=== PATIENT | male | born 1955 | race American Indian/Alaskan Native ===

== ENCOUNTER 2020-06-28 13:21 | Observation (INO) | payer MEDICAID ==
--- NOTE | 2020-06-28 13:40 | Emergency Department Report ---
Blank Doc - Documentation Documentation: 65-year-old F Mauritian male with asthma and presents emergency department comp laining of progressively worsening shortness of breath not responding to to his usual albuterol treatment states he noted a whole box of albuterol with no improvement in the chest pressure is beginning to to develop as well. Physical examination there is some wheezing and and and rhonchi his saturation was around 91 was actually placed him on a nasal cannula as well This initial assessment/diagnostic orders/clinical plan/treatment(s) is/are subject to change based on patients health status, clinical progression and re- assessment by fellow clinical providers in the ED. Further treatment and workup at subsequent clinical providers discretion. Patient/guardian urged not to elope from the ED as their condition may be serious if not clinically assessed and managed. Initial orders include: Chest pain evaluation and treat his asthma
--- NOTE | 2020-06-28 14:10 | XRay Report ---
CHEST 2 VIEWS INDICATION / CLINICAL INFORMATION: Dyspnea. COMPARISON: Chest one view from 08/03/2015. FINDINGS: SUPPORT DEVICES: None. HEART / MEDIASTINUM: No significant abnormality. LUNGS / PLEURA: No significant pulmonary or pleural abnormality. No pneumothorax. ADDITIONAL FINDINGS: No significant additional findings. IMPRESSION: 1. No acute abnormality of the chest. Signer Name: Ankit Garibay MD Signed: 06/28/2020 2:06 PM Workstation Name: [id number]
[2020-06-28 14:24] LABS: Hematocrit 45.8 % (35.5-45.6); Hemoglobin 15.3 gm/dl (11.8-15.2); Mean Corpuscular HGB Conc 33 % (32-34); Mean Corpuscular Volume 91 fl (84-94); Platelet Count 290 K/mm3 (140-440); Red Blood Count 5.06 M/mm3 (3.65-5.03); Red Cell Distribution Width 14.1 % (13.2-15.2)
[2020-06-28 14:45] LABS: Alanine Aminotransferase 23 units/L (7-56); Albumin 4.4 g/dL (3.9-5); BUN/Creatinine Ratio 10; Blood Urea Nitrogen 11 mg/dL (9-20); Calcium 9.2 mg/dL (8.4-10.2); Hemolysis Index 12
[2020-06-28] MEDS ORDERED: IPRATROPIUM/ALBUTEROL SULFATE 3 ML AMPUL.NEB IH ONE (16:00)
[2020-06-28] MEDS ORDERED: predniSONE 50 MG TAB PO STA (16:00)
[2020-06-28 17:49] LABS: Basophils % (Manual) 0 % (0.0-1.8); Total Cells Counted 100
[2020-06-28 17:50] LABS: Platelet Estimate Consistent w Auto; RBC Morphology Normal
[2020-06-28] MEDS ORDERED: ALBUTEROL 2.5 MG/3 ML NEBU IH ONE ×3 (18:53→22:00)
[2020-06-28] MEDS ORDERED: IPRATROPIUM 0.02% NEBU 2.5 ML IH ONE ×3 (18:54→22:00)
[2020-06-28] MEDS ORDERED: methylPREDNISolone Sod Succinate 125 MG/2 ML INJ IV ONE (18:55)
[2020-06-28] MEDS ORDERED: MAGNESIUM SULFATE 2 GM/50 ML BAG IV ONE (18:55)
--- NOTE | 2020-06-28 19:07 | Emergency Department Report ---
ED Shortness of Breath HPI - General Chief Complaint: Dyspnea/Respdistress Stated Complaint: SOB/ASTHMATIC Time Seen by Provider: 06/28/20 18:54 Source: patient Mode of arrival: Ambulatory Limitations: No Limitations - History of Present Illness Initial Comments: Chief complaint: "I am just having trouble breathing." Mr. Aguero is a 65-year-old male with history of hypertension, COPD who presents with severe shortness of breath for the last several days. He has productive cough with yellow sputum. No known sick contacts. He denies any fever. Severe shortness of breath. Home medication proair did not provide any relief. Patient also takes Symbicort. MD Complaint: shortness of breath, cough -: Gradual, days(s) (2) Severity: severe Consistency: constant Improves With: nothing Worsens With: exertion Known History Of: COPD Context: other (No sick contacts) Associated Symptoms: cough, sputum production - Related Data Home Medications Medication Instructions Recorded Confirmed Last Taken Beclomethasone Dipropionat(Nf) 1 inhalation IH BID 08/03/15 08/03/15 Unknown [Qvar 40MCG] Previous Rx's Medication Instructions Recorded Last Taken Type Albuterol Mdi (or & Nicu Only) 2 puff IH QID PRN #1 inha 08/04/15 Unknown Rx [ProAir HFA Inhaler] Butalb/Acetamin/Caff 50-325-40 2 tab PO Q4H PRN #30 tablet 08/04/15 Unknown Rx [Fioricet 50-325-40] HYDROcodone/HOMATROP 5-1.5 10 ml PO BID PRN #100 ml 08/04/15 Unknown Rx [HYDROcodone-Homatropin 5-1.5 mg per 5 ML] guaiFENesin [Robitussin] 200 mg PO QID PRN #1 bottle 08/04/15 Unknown Rx predniSONE [Deltasone] 50 mg PO QDAY #10 tab 08/04/15 Unknown Rx Albuterol *Only Ed* [Proventil 2.5 mg IH Q6H PRN #1 box 08/05/15 Unknown Rx 0.5% NEBS] Amoxicillin [Trimox CAP] 500 mg PO Q8H #21 capsule 08/05/15 Unknown Rx Ciprofloxacin HCl [Ciprofloxacin 500 mg PO BID #14 tablet 08/05/15 Unknown Rx TAB] hydrALAZINE [Apresoline TAB] 25 mg PO Q8HR #90 tab 08/05/15 Unknown Rx Doxycycline Hyclate [Doxycycline 100 mg PO Q12HR 7 Days #14 tab 06/28/20 Unknown Rx Hyclate TAB] Prednisone [predniSONE 10 mg 10 mg PO .TAPER #1 tab.ds.pk 06/28/20 Unknown Rx (6-Day Pack, 21 Tabs)] Allergies Allergy/AdvReac Type Severity Reaction Status Date / Time No Known Allergies Allergy Verified 11/25/14 03:19 ED Review of Systems ROS: Stated complaint: SOB/ASTHMATIC Other details as noted in HPI Comment: All other systems reviewed and negative Constitutional: denies: fever, malaise Respiratory: cough, shortness of breath Cardiovascular: denies: chest pain Gastrointestinal: denies: abdominal pain, nausea, vomiting Neurological: denies: headache ED Past Medical Hx - Past Medical History Previous Medical History?: Yes Hx Hypertension: Yes (unknown) Hx Heart Attack/AMI: No Hx Congestive Heart Failure: No Hx Diabetes: No Hx Deep Vein Thrombosis: No Hx Pulmonary Embolism: No Hx Liver Disease: No Hx Sickle Cell Disease: No Hx Arthritis: No Hx Seizures: No Hx Asthma: No Hx COPD: Yes Hx Tuberculosis: No Hx Dementia: No - Surgical History Hx Coronary Stent: No Hx Pacemaker: No Hx Internal Defibrillator: No - Social History Smoking Status: Former Smoker Substance Use Type: None - Medications Home Medications: Home Medications Medication Instructions Recorded Confirmed Last Taken Type Beclomethasone Dipropionat(Nf) 1 inhalation IH BID 08/03/15 08/03/15 Unknown History [Qvar 40MCG] Albuterol Mdi (or & Nicu Only) 2 puff IH QID PRN #1 inha 08/04/15 Unknown Rx [ProAir HFA Inhaler] Butalb/Acetamin/Caff 50-325-40 2 tab PO Q4H PRN #30 tablet 08/04/15 Unknown Rx [Fioricet 50-325-40] HYDROcodone/HOMATROP 5-1.5 10 ml PO BID PRN #100 ml 08/04/15 Unknown Rx [HYDROcodone-Homatropin 5-1.5 mg per 5 ML] guaiFENesin [Robitussin] 200 mg PO QID PRN #1 bottle 08/04/15 Unknown Rx predniSONE [Deltasone] 50 mg PO QDAY #10 tab 08/04/15 Unknown Rx Albuterol *Only Ed* [Proventil 2.5 mg IH Q6H PRN #1 box 08/05/15 Unknown Rx 0.5% NEBS] Amoxicillin [Trimox CAP] 500 mg PO Q8H #21 capsule 08/05/15 Unknown Rx Ciprofloxacin HCl [Ciprofloxacin 500 mg PO BID #14 tablet 08/05/15 Unknown Rx TAB] hydrALAZINE [Apresoline TAB] 25 mg PO Q8HR #90 tab 08/05/15 Unknown Rx Doxycycline Hyclate [Doxycycline 100 mg PO Q12HR 7 Days #14 tab 06/28/20 Unknown Rx Hyclate TAB] Prednisone [predniSONE 10 mg 10 mg PO .TAPER #1 tab.ds.pk 06/28/20 Unknown Rx (6-Day Pack, 21 Tabs)] ED Physical Exam - General Limitations: No Limitations General appearance: alert, other (Patient speaking full word sentences with obvious work of breathing, tripod position) - Head Head exam: Present: atraumatic, normocephalic - Eye Eye exam: Present: normal appearance - ENT ENT exam: Present: mucous membranes moist - Neck Neck exam: Present: normal inspection, full ROM - Respiratory Respiratory exam: Present: respiratory distress, accessory muscle use, decreased breath sounds, prolonged expiratory. Absent: rales, rhonchi - Cardiovascular Cardiovascular Exam: Present: regular rate, normal rhythm, normal heart sounds - GI/Abdominal GI/Abdominal exam: Present: soft. Absent: distended, tenderness, guarding, rebound - Extremities Exam Extremities exam: Present: normal inspection - Neurological Exam Neurological exam: Present: alert, oriented X3 - Psychiatric Psychiatric exam: Present: normal affect, normal mood - Skin Skin exam: Present: warm, dry, intact, normal color ED Course Vital Signs 06/28/20 06/28/20 06/28/20 13:30 14:44 18:46 Temperature 98.2 F 97.8 F Pulse Rate 84 77 66 Respiratory 24 26 H 24 Rate Blood Pressure 194/77 177/93 Blood Pressure [Right] O2 Sat by Pulse 92 94 89 Oximetry 06/28/20 18:51 Temperature Pulse Rate 74 Respiratory 26 H Rate Blood Pressure Blood Pressure 177/93 [Right] O2 Sat by Pulse 89 Oximetry ED Medical Decision Making - Lab Data Result diagrams: 06/28/20 14:09 11/16/20 14:09 Laboratory Results - last 24 hr 06/28/20 06/28/20 06/28/20 14:09 14:09 14:09 WBC 5.5 RBC 5.06 H Hgb 15.3 H Hct 45.8 H MCV 91 MCH 30 MCHC 33 RDW 14.1 Plt Count 290 Eos % (Auto) Field Placement Director Add Manual Diff Complete Total Counted 100 Seg Neuts % (Manual) 56.0 Band Neutrophils % 0 Lymphocytes % (Manual) 22.0 Reactive Lymphs % (Man) 0 Monocytes % (Manual) 4.0 Eosinophils % (Manual) 18.0 H Basophils % (Manual) 0 Metamyelocytes % 0 Myelocytes % 0 Promyelocytes % 0 Blast Cells % 0 Nucleated RBC % 1.0 H Seg Neutrophils # Man 3.1 Band Neutrophils # 0.0 Lymphocytes # (Manual) 1.2 Abs React Lymphs (Man) 0.0 Monocytes # (Manual) 0.2 Eosinophils # (Manual) 1.0 H Basophils # (Manual) 0.0 Metamyelocytes # 0.0 Myelocytes # 0.0 Promyelocytes # 0.0 Blast Cells # 0.0 WBC Morphology Not Reportable Hypersegmented Neuts Not Reportable Hyposegmented Neuts Not Reportable Hypogranular Neuts Not Reportable Smudge Cells Not Reportable Toxic Granulation Not Reportable Toxic Vacuolation Not Reportable Dohle Bodies Not Reportable Pelger-Huet Anomaly Not Reportable Shannon Rods Not Reportable Platelet Estimate Consistent w auto Clumped Platelets Not Reportable Plt Clumps, EDTA Not Reportable Large Platelets Not Reportable Giant Platelets Not Reportable Platelet Satelliting Not Reportable Plt Morphology Comment Not Reportable RBC Morphology Normal Dimorphic RBCs Not Reportable Polychromasia Not Reportable Hypochromasia Not Reportable Poikilocytosis Not Reportable Anisocytosis Not Reportable Microcytosis Not Reportable Macrocytosis Not Reportable Spherocytes Not Reportable Pappenheimer Bodies Not Reportable Sickle Cells Not Reportable Target Cells Not Reportable Tear Drop Cells Not Reportable Ovalocytes Not Reportable Helmet Cells Not Reportable Smyth-[place] Bodies Not Reportable [place] Rings Not Reportable Igor Cells Not Reportable Bite Cells Not Reportable Crenated Cell Not Reportable Elliptocytes Not Reportable Acanthocytes (Spur) Not Reportable Rouleaux Not Reportable Hemoglobin C Crystals Not Reportable Schistocytes Not Reportable Malaria parasites Not Reportable Jose Bodies Not Reportable Hem Pathologist Commnt No Sodium 138 Potassium 4.1 Chloride 101.8 Carbon Dioxide 28 Anion Gap 12 BUN 11 Creatinine 1.1 Estimated GFR > 60 BUN/Creatinine Ratio 10 Glucose 91 Calcium 9.2 Total Bilirubin 0.30 AST 33 ALT 23 Alkaline Phosphatase 83 Troponin T < 0.010 Total Protein 8.0 Albumin 4.4 Albumin/Globulin Ratio 1.2 06/28/20 16:29 WBC RBC Hgb Hct MCV MCH MCHC RDW Plt Count Eos % (Auto) Add Manual Diff Total Counted Seg Neuts % (Manual) Band Neutrophils % Lymphocytes % (Manual) Reactive Lymphs % (Man) Monocytes % (Manual) Eosinophils % (Manual) Basophils % (Manual) Metamyelocytes % Myelocytes % Promyelocytes % Blast Cells % Nucleated RBC % Seg Neutrophils # Man Band Neutrophils # Lymphocytes # (Manual) Abs React Lymphs (Man) Monocytes # (Manual) Eosinophils # (Manual) Basophils # (Manual) Metamyelocytes # Myelocytes # Promyelocytes # Blast Cells # WBC Morphology Hypersegmented Neuts Hyposegmented Neuts Hypogranular Neuts Smudge Cells Toxic Granulation Toxic Vacuolation Dohle Bodies Pelger-Huet Anomaly Shannon Rods Platelet Estimate Clumped Platelets Plt Clumps, EDTA Large Platelets Giant Platelets Platelet Satelliting Plt Morphology Comment RBC Morphology Dimorphic RBCs Polychromasia Hypochromasia Poikilocytosis Anisocytosis Microcytosis Macrocytosis Spherocytes Pappenheimer Bodies Sickle Cells Target Cells Tear Drop Cells Ovalocytes Helmet Cells Smyth-Ada Bodies [place] Rings [place] Cells Bite Cells Crenated Cell Elliptocytes Acanthocytes (Spur) Rouleaux Hemoglobin C Crystals Schistocytes Malaria parasites Jose Bodies Hem Pathologist Commnt Sodium Potassium Chloride Carbon Dioxide Anion Gap BUN Creatinine Estimated GFR BUN/Creatinine Ratio Glucose Calcium Total Bilirubin AST ALT Alkaline Phosphatase Troponin T < 0.010 Total Protein Albumin Albumin/Globulin Ratio - Radiology Data Radiology results: report reviewed CHEST 2 VIEWS INDICATION / CLINICAL INFORMATION: Dyspnea. COMPARISON: Chest one view from 08/03/2015. FINDINGS: SUPPORT DEVICES: None. HEART / MEDIASTINUM: No significant abnormality. LUNGS / PLEURA: No significant pulmonary or pleural abnormality. No pneumothorax. ADDITIONAL FINDINGS: No significant additional findings. IMPRESSION: 1. No acute abnormality of the chest. - Medical Decision Making Acute COPD exacerbation. Symptoms resolved after continuous nebulizer therapy, p.o. antibiotics, Solu-Medrol and magnesium. Patient was prescribed prednisone taper and doxycycline. Patient is discharged home. Critical care attestation.: If time is entered above; I have spent that time in minutes in the direct care of this critically ill patient, excluding procedure time. ED Disposition Clinical Impression: COPD exacerbation Disposition: DC- TO HOME OR SELFCARE Is pt being admited?: No Does the pt Need Aspirin: No Condition: Stable Instructions: Chronic Bronchitis (ED), Chronic Obstructive Pulmonary Disease, [id number] Prescriptions: Doxycycline Hyclate [Doxycycline Hyclate TAB] 100 mg PO Q12HR 7 Days #14 tab Prednisone [predniSONE 10 mg (6-Day Pack, 21 Tabs)] 10 mg PO .TAPER #1 tab.ds.pk Referrals: PRIMARY CARE, [Primary Care Provider] - 3-5 Days
[2020-06-28] MEDS ORDERED: DOXYCYCLINE 100 MG CAP PO ONE (21:55)
[2020-06-28] MEDS ORDERED: MAGNESIUM HYDROXIDE (MOM) ORAL LIQD UDC PO PRN (23:44)
[2020-06-28] MEDS ORDERED: MORPHINE 2 MG/1 ML INJ IV PRN (23:44)
[2020-06-28] MEDS ORDERED: ACETAMINOPHEN 325 MG TAB PO PRN (23:44)
[2020-06-28] MEDS ORDERED: ONDANSETRON 4 MG/2 ML INJ IV PRN (23:44)
--- NOTE | 2020-06-28 23:53 | History and Physical Report ---
History of Present Illness Date of examination: 06/28/20 Date of admission: 06/28/2020 Chief complaint: Shortness of breath History of present illness: 65-year-old male with known history of hypertension, COPD, presenting to the emergency room today complaining of shortness of breath and cough which has been ongoing for the past few days. Cough has been productive of some slightly scanty yellowish sputum. He denies any chest pain, no fever or chills, no nausea vomiting, no headache or dizziness. Patient states that he traveled out of state about a month ago but denies any sick contacts. Denies any contact with anyone with COVID-19. He has been exposed to seasonal pollens and also exposed to second hand smoke. Patient is a former smoker. He has uses inhalers and nebulizing treatments at home without any significant improvement. Upon arrival in the emergency room he was slightly hypoxic on minimal exertion. Patient is not on home oxygen. Chest x-ray was unremarkable. Patient being admitted for COPD exacerbation. Past History Past Medical History: COPD, hypertension Past Surgical History: No surgical history Social history: smoking (Former smoker) Family history: no significant family history Medications and Allergies Allergies Allergy/AdvReac Type Severity Reaction Status Date / Time No Known Allergies Allergy Verified 11/25/14 03:19 Home Medications Medication Instructions Recorded Confirmed Last Taken Type Beclomethasone Dipropionat(Nf) 1 inhalation IH BID 08/03/15 08/03/15 Unknown History [Qvar 40MCG] Albuterol Mdi (or & Nicu Only) 2 puff IH QID PRN #1 inha 08/04/15 Unknown Rx [ProAir HFA Inhaler] Butalb/Acetamin/Caff 50-325-40 2 tab PO Q4H PRN #30 tablet 08/04/15 Unknown Rx [Fioricet 50-325-40] HYDROcodone/HOMATROP 5-1.5 10 ml PO BID PRN #100 ml 08/04/15 Unknown Rx [HYDROcodone-Homatropin 5-1.5 mg per 5 ML] guaiFENesin [Robitussin] 200 mg PO QID PRN #1 bottle 08/04/15 Unknown Rx predniSONE [Deltasone] 50 mg PO QDAY #10 tab 08/04/15 Unknown Rx Albuterol *Only Ed* [Proventil 2.5 mg IH Q6H PRN #1 box 08/05/15 Unknown Rx 0.5% NEBS] Amoxicillin [Trimox CAP] 500 mg PO Q8H #21 capsule 08/05/15 Unknown Rx Ciprofloxacin HCl [Ciprofloxacin 500 mg PO BID #14 tablet 08/05/15 Unknown Rx TAB] hydrALAZINE [Apresoline TAB] 25 mg PO Q8HR #90 tab 08/05/15 Unknown Rx Doxycycline Hyclate [Doxycycline 100 mg PO Q12HR 7 Days #14 tab 06/28/20 Unknown Rx Hyclate TAB] Prednisone [predniSONE 10 mg 10 mg PO .TAPER #1 tab.ds.pk 06/28/20 Unknown Rx (6-Day Pack, 21 Tabs)] Active Meds: Active Medications Acetaminophen (Tylenol) 650 mg PO Q4H PRN PRN Reason: Pain MILD(1-3)/Fever >100.5/AARON Albuterol/Ipratropium (Duoneb *Not For Prn Use*) 1 ampul IH Q4HRT PAOLO Enoxaparin Sodium (Enoxaparin) 40 mg SUB-Q QDAY@2200 PAOLO; Protocol Magnesium Hydroxide (Milk Of Magnesia) 30 ml PO Q4H PRN PRN Reason: Constipation Methylprednisolone Sodium Succinate (Solu-Medrol) 40 mg IV Q8HR PAOLO Morphine Sulfate (Morphine) 2 mg IV Q4H PRN PRN Reason: Pain, Moderate (4-6) Ondansetron HCl (Zofran) 4 mg IV Q8H PRN PRN Reason: Nausea And Vomiting Sodium Chloride (Sodium Chloride Flush Syringe 10 Ml) 10 ml IV BID [facility] Sodium Chloride (Sodium Chloride Flush Syringe 10 Ml) 10 ml IV PRN PRN PRN Reason: LINE FLUSH Review of Systems Constitutional: no fever, no chills Ears, nose, mouth and throat: no nasal congestion, no sore throat Cardiovascular: no chest pain, no palpitations Respiratory: cough, shortness of breath, wheezing Gastrointestinal: no abdominal pain, no nausea, no vomiting, no diarrhea Genitourinary Male: no dysuria, no hematuria, no nocturia Musculoskeletal: no neck pain, no low back pain Integumentary: no rash, no pruritis Neurological: no headaches, no confusion Psychiatric: no anxiety, no depression Exam - Constitutional Vitals: Temp Pulse Resp BP Pulse Ox 98.7 F 75 16 153/81 97 06/28/20 21:00 06/28/20 21:00 06/28/20 21:00 06/28/20 21:00 06/28/20 21:00 General appearance: Present: no acute distress, well-nourished - EENT Eyes: Present: PERRL, EOM intact. Absent: scleral icterus ENT: hearing intact, clear oral mucosa, dentition normal - Neck Neck: Present: supple, normal ROM - Respiratory Respiratory effort: normal Respiratory: bilateral: wheezing - Cardiovascular Rhythm: regular Heart Sounds: Present: S1 & S2. Absent: gallop, systolic murmur, diastolic murmur, rub - Extremities Extremities: no ischemia, pulses intact, pulses symmetrical, No edema, Full ROM Peripheral Pulses: within normal limits - Abdominal General gastrointestinal: Present: soft, non-tender, non-distended, normal bowel sounds. Absent: mass - Integumentary Integumentary: Present: clear, warm, dry. Absent: rash - Musculoskeletal Musculoskeletal: strength equal bilaterally - Psychiatric Psychiatric: appropriate mood/affect, intact judgment & insight, memory intact, cooperative - Neurologic Neurologic: CNII-XII intact, no focal deficits, moves all extremities HEART Score - HEART Score Troponin: Troponin T < 0.010 ng/mL (0.00-0.029) 06/28/20 16:29 Results - Labs CBC & Chem 7: 06/29/20 05:02 06/29/20 05:02 Labs: Abnormal lab results 06/28/20 Range/Units 14:09 RBC 5.06 H (3.65-5.03) M/mm3 Hgb 15.3 H (11.8-15.2) gm/dl Hct 45.8 H (35.5-45.6) % Eosinophils % (Manual) 18.0 H (0.0-4.3) % Nucleated RBC % 1.0 H (0.0-0.9) % Eosinophils # (Manual) 1.0 H (0.0-0.4) K/mm3 Assessment and Plan - Patient Problems (1) COPD exacerbation Current Visit: Yes Status: Acute Plan to address problem: We will place patient on nebulizing treatments and IV steroid. We will keep O2 saturation greater or equal to 94%. We will place patient on empiric antibiotics for possible underlying bronchitis. (2) Hypertension Current Visit: No Status: Chronic Qualifiers: Hypertension type: essential hypertension Qualified Code(s): I10 - Essential (primary) hypertension Plan to address problem: We will monitor vital signs closely. We placed on antihypertensive medication as needed. (3) DVT prophylaxis Current Visit: No Status: Acute Plan to address problem: Patient placed on subcutaneous Lovenox. (4) Full code status Current Visit: Yes Status: Acute
[2020-06-29 06:20] LABS: BUN/Creatinine Ratio 15; Blood Urea Nitrogen 16 mg/dL (9-20); Calcium 9.7 mg/dL (8.4-10.2); Hemolysis Index 8
[2020-06-29 06:25] LABS: Basophils % (Auto) 0.1 % (0.0-1.8); Hematocrit 47.7 % (35.5-45.6); Hemoglobin 16.1 gm/dl (11.8-15.2); Lymphocytes # (Auto) 0.7 K/mm3 (1.2-5.4); Mean Corpuscular HGB Conc 34 % (32-34); Mean Corpuscular Volume 91 fl (84-94); Monocytes # (Auto) 0.1 K/mm3 (0.0-0.8); Monocytes % (Auto) 1.4 % (0.0-7.3); Platelet Count 307 K/mm3 (140-440); Red Blood Count 5.24 M/mm3 (3.65-5.03); Red Cell Distribution Width 13.9 % (13.2-15.2)
[2020-06-29 06:31] LABS: INR 0.93 (0.87-1.13)
[2020-06-29] MEDS ORDERED: IPRATROPIUM/ALBUTEROL SULFATE 3 ML AMPUL.NEB IH ONE (07:53)
[2020-06-29] MEDS ORDERED: methylPREDNISolone Sod Succinate 40 MG/1 ML INJ ONE ×2 (07:54→13:22)
[2020-06-29] MEDS: IPRATROPIUM/ALBUTEROL SULFATE 3 ML AMPUL.NEB IH SCH ×5 (08:00→17:37)
[2020-06-29] MEDS: methylPREDNISolone Sod Succinate 40 MG/1 ML INJ IV SCH ×2 (08:01→13:31)
--- NOTE | 2020-06-29 08:33 | Progress Note ---
Assessment and Plan Assessment and plan: --Acute exacerbation of COPD; Oxygen titrate O2 sats to more than 90% Nebulizers, IV steroids, IV antibiotics Inhalation steroids, supportive care --Hypertension; moderate control Resume home antihypertensives, as needed hydralazine Closely monitor --DVT prophylaxis; Lovenox We will closely monitor patient and adjust management as needed Plan of care reviewed with the patient and his nurse History Interval history: I have seen and examined the patient in the ER awaiting bed assignment this morning Patient's chart and medications reviewed Patient was admitted with acute exacerbation of COPD Patient feels slightly better still complains of some wheezing and chest tightness And congestion, Denies chest pain Afebrile, in mild distress Vital signs reviewed Hospitalist Physical - Constitutional Vitals: Temp Pulse Resp BP Pulse Ox 98.7 F 75 16 153/81 97 06/28/20 21:00 06/28/20 21:00 06/28/20 21:00 06/28/20 21:00 06/28/20 21:00 General appearance: Present: mild distress, well-nourished - EENT Eyes: Present: PERRL, EOM intact - Neck Neck: Present: supple, normal ROM - Respiratory Respiratory effort: normal Respiratory: bilateral: diminished, rhonchi, negative: rales, wheezing - Cardiovascular Rhythm: regular Heart Sounds: Present: S1 & S2 - Extremities Extremities: no ischemia, No edema - Abdominal General gastrointestinal: soft, non-tender, non-distended, normal bowel sounds - Integumentary Integumentary: Present: clear, warm - Psychiatric Psychiatric: appropriate mood/affect, cooperative - Neurologic Neurologic: CNII-XII intact, moves all extremities HEART Score - HEART Score Troponin: Troponin T < 0.010 ng/mL (0.00-0.029) 06/28/20 16:29 Results - Labs CBC & Chem 7: 06/29/20 05:02 06/29/20 05:02 Labs: Laboratory Last Values WBC 5.8 K/mm3 (4.5-11.0) 06/29/20 05:02 RBC 5.24 M/mm3 (3.65-5.03) H 06/29/20 05:02 Hgb 16.1 gm/dl (11.8-15.2) H 06/29/20 05:02 Hct 47.7 % (35.5-45.6) H 06/29/20 05:02 MCV 91 fl (84-94) 06/29/20 05:02 MCH 31 pg (28-32) 06/29/20 05:02 MCHC 34 % (32-34) 06/29/20 05:02 RDW 13.9 % (13.2-15.2) 06/29/20 05:02 Plt Count 307 K/mm3 (140-440) 06/29/20 05:02 Lymph % (Auto) 12.0 % (13.4-35.0) L 06/29/20 05:02 Moore % (Auto) 1.4 % (0.0-7.3) 06/29/20 05:02 Eos % (Auto) 0.0 % (0.0-4.3) 06/29/20 05:02 Baso % (Auto) 0.1 % (0.0-1.8) 06/29/20 05:02 Lymph # (Auto) 0.7 K/mm3 (1.2-5.4) L 06/29/20 05:02 Moore # (Auto) 0.1 K/mm3 (0.0-0.8) 06/29/20 05:02 Eos # (Auto) 0.0 K/mm3 (0.0-0.4) 06/29/20 05:02 Baso # (Auto) 0.0 K/mm3 (0.0-0.1) 06/29/20 05:02 Add Manual Diff Complete 06/28/20 14:09 Total Counted 100 06/28/20 14:09 Seg Neutrophils % 86.5 % (40.0-70.0) H 06/29/20 05:02 Seg Neuts % (Manual) 56.0 % (40.0-70.0) 06/28/20 14:09 Band Neutrophils % 0 % 06/28/20 14:09 Lymphocytes % (Manual) 22.0 % (13.4-35.0) 06/28/20 14:09 Reactive Lymphs % (Man) 0 % 06/28/20 14:09 Monocytes % (Manual) 4.0 % (0.0-7.3) 06/28/20 14:09 Eosinophils % (Manual) 18.0 % (0.0-4.3) H 06/28/20 14:09 Basophils % (Manual) 0 % (0.0-1.8) 06/28/20 14:09 Metamyelocytes % 0 % 06/28/20 14:09 Myelocytes % 0 % 06/28/20 14:09 Promyelocytes % 0 % 06/28/20 14:09 Blast Cells % 0 % 06/28/20 14:09 Nucleated RBC % 1.0 % (0.0-0.9) H 06/28/20 14:09 Seg Neutrophils # 5.1 K/mm3 (1.8-7.7) 06/29/20 05:02 Seg Neutrophils # Man 3.1 K/mm3 (1.8-7.7) 06/28/20 14:09 Band Neutrophils # 0.0 K/mm3 06/28/20 14:09 Lymphocytes # (Manual) 1.2 K/mm3 (1.2-5.4) 06/28/20 14:09 Abs React Lymphs (Man) 0.0 K/mm3 06/28/20 14:09 Monocytes # (Manual) 0.2 K/mm3 (0.0-0.8) 06/28/20 14:09 Eosinophils # (Manual) 1.0 K/mm3 (0.0-0.4) H 06/28/20 14:09 Basophils # (Manual) 0.0 K/mm3 (0.0-0.1) 06/28/20 14:09 Metamyelocytes # 0.0 K/mm3 06/28/20 14:09 Myelocytes # 0.0 K/mm3 06/28/20 14:09 Promyelocytes # 0.0 K/mm3 06/28/20 14:09 Blast Cells # 0.0 K/mm3 06/28/20 14:09 WBC Morphology Not Reportable 06/28/20 14:09 Hypersegmented Neuts Not Reportable 06/28/20 14:09 Hyposegmented Neuts Not Reportable 06/28/20 14:09 Hypogranular Neuts Not Reportable 06/28/20 14:09 Smudge Cells Not Reportable 06/28/20 14:09 Toxic Granulation Not Reportable 06/28/20 14:09 Toxic Vacuolation Not Reportable 06/28/20 14:09 Dohle Bodies Not Reportable 06/28/20 14:09 Pelger-Huet Anomaly Not Reportable 06/28/20 14:09 Shannon Rods Not Reportable 06/28/20 14:09 Platelet Estimate Consistent w auto 06/28/20 14:09 Clumped Platelets Not Reportable 06/28/20 14:09 Plt Clumps, EDTA Not Reportable 06/28/20 14:09 Large Platelets Not Reportable 06/28/20 14:09 Giant Platelets Not Reportable 06/28/20 14:09 Platelet Satelliting Not Reportable 06/28/20 14:09 Plt Morphology Comment Not Reportable 06/28/20 14:09 RBC Morphology Normal 06/28/20 14:09 Dimorphic RBCs Not Reportable 06/28/20 14:09 Polychromasia Not Reportable 06/28/20 14:09 Hypochromasia Not Reportable 06/28/20 14:09 Poikilocytosis Not Reportable 06/28/20 14:09 Anisocytosis Not Reportable 06/28/20 14:09 Microcytosis Not Reportable 06/28/20 14:09 Macrocytosis Not Reportable 06/28/20 14:09 Spherocytes Not Reportable 06/28/20 14:09 Pappenheimer Bodies Not Reportable 06/28/20 14:09 Sickle Cells Not Reportable 06/28/20 14:09 Target Cells Not Reportable 06/28/20 14:09 Tear Drop Cells Not Reportable 06/28/20 14:09 Ovalocytes Not Reportable 06/28/20 14:09 Helmet Cells Not Reportable 06/28/20 14:09 Smyth-[place] Bodies Not Reportable 06/28/20 14:09 Geary Rings Not Reportable 06/28/20 14:09 [place] Cells Not Reportable 06/28/20 14:09 Bite Cells Not Reportable 06/28/20 14:09 Crenated Cell Not Reportable 06/28/20 14:09 Elliptocytes Not Reportable 06/28/20 14:09 Acanthocytes (Spur) Not Reportable 06/28/20 14:09 Rouleaux Not Reportable 06/28/20 14:09 Hemoglobin C Crystals Not Reportable 06/28/20 14:09 Schistocytes Not Reportable 06/28/20 14:09 Malaria parasites Not Reportable 06/28/20 14:09 Jose Bodies Not Reportable 06/28/20 14:09 Hem Pathologist Commnt No 06/28/20 14:09 PT 12.6 Sec. (12.2-14.9) 06/29/20 05:02 INR 0.93 (0.87-1.13) 06/29/20 05:02 Sodium 140 mmol/L (137-145) 06/29/20 05:02 Potassium 4.6 mmol/L (3.6-5.0) 06/29/20 05:02 Chloride 102.4 mmol/L (98-107) 06/29/20 05:02 Carbon Dioxide 23 mmol/L (22-30) 06/29/20 05:02 Anion Gap 19 mmol/L 06/29/20 05:02 BUN 16 mg/dL (9-20) 06/29/20 05:02 Creatinine 1.1 mg/dL (0.8-1.3) 06/29/20 05:02 Estimated GFR > 60 ml/min 06/29/20 05:02 BUN/Creatinine Ratio 15 % 06/29/20 05:02 Glucose 116 mg/dL (75-100) H 06/29/20 05:02 Calcium 9.7 mg/dL (8.4-10.2) 06/29/20 05:02 Total Bilirubin 0.30 mg/dL (0.1-1.2) 06/28/20 14:09 AST 33 units/L (5-40) 06/28/20 14:09 ALT 23 units/L (7-56) 06/28/20 14:09 Alkaline Phosphatase 83 units/L (35-129) 06/28/20 14:09 Troponin T < 0.010 ng/mL (0.00-0.029) 06/28/20 16:29 Total Protein 8.0 g/dL (6.3-8.2) 06/28/20 14:09 Albumin 4.4 g/dL (3.9-5) 06/28/20 14:09 Albumin/Globulin Ratio 1.2 % 06/28/20 14:09 Damon/IV: IV Catheter Type [Left Forearm INT / Saline Lock ] Active Medications - Current Medications Current Medications: Generic Name Dose Route Start Last Admin Trade Name Freq PRN Reason Stop Dose Admin Acetaminophen 650 mg 06/28/20 23:44 Tylenol PO Q4H PRN Pain MILD(1-3)/Fever >100.5/AARON Albuterol/Ipratropium 1 ampul 06/29/20 00:00 06/29/20 08:03 Duoneb *Not For Prn Use* IH Not Given Q4HRT [facility] Enoxaparin Sodium 40 mg 06/29/20 22:00 Enoxaparin SUB-Q QDAY@2200 [facility] Protocol Levofloxacin/Dextrose 750 mg in 150 mls @ 100 mls/hr 06/29/20 10:00 Levaquin 750mg/150ml IV Q24HR [facility] Protocol Magnesium Hydroxide 30 ml 06/28/20 23:44 Milk Of Magnesia PO Q4H PRN Constipation Methylprednisolone Sodium Succinate 40 mg 06/29/20 06:00 06/29/20 08:01 Solu-Medrol IV 40 mg Q8HR [facility] Administration Morphine Sulfate 2 mg 06/28/20 23:44 Morphine IV Q4H PRN Pain, Moderate (4-6) Ondansetron HCl 4 mg 06/28/20 23:44 Zofran IV Q8H PRN Nausea And Vomiting Sodium Chloride 10 ml 06/29/20 10:00 Sodium Chloride Flush Syringe 10 Ml IV BID [facility] Sodium Chloride 10 ml 06/28/20 23:44 06/29/20 08:05 Sodium Chloride Flush Syringe 10 Ml IV 10 ml PRN PRN Administration LINE FLUSH
[2020-06-29] MEDS ORDERED: BUTALB/ACETAMINOPHEN/CAFFEINE TAB PO PRN (09:00)
[2020-06-29 12:50] VITALS: BP 152/81
[2020-06-29] MEDS ORDERED: hydrALAZINE 25 MG TAB ONE (13:22)
[2020-06-29] MEDS ORDERED: hydrALAZINE 25 MG TAB PO SCH (14:00)
[2020-06-29] MEDS ORDERED: ALBUTEROL 2.5 MG/3 ML NEBU IH ONE (14:41)
[2020-06-29] MEDS ORDERED: IPRATROPIUM 0.02% NEBU 2.5 ML IH ONE (14:41)
--- NOTE | 2020-06-29 16:18 | Discharge Summary ---
Providers - Providers Date of Admission: 06/28/20 23:41 Date of discharge: 06/29/20 Attending physician: MEKA KELLY Primary care physician: MASTER BAKER Hospitalization Condition: Stable Hospital course: --Acute exacerbation of COPD; Oxygen titrate O2 sats to more than 90% Nebulizers, IV steroids, IV antibiotics Inhalation steroids, supportive care --Hypertension; moderate control Resume home antihypertensives, as needed hydralazine Closely monitor --DVT prophylaxis; Lovenox We will closely monitor patient and adjust management as needed Plan of care reviewed with the patient and his nurse Disposition: DC-01 TO HOME OR SELFCARE Time spent for discharge: 32 min Core Measure Documentation - Palliative Care Palliative Care/ Comfort Measures: Not Applicable - Core Measures Any of the following diagnoses?: none Exam - Constitutional Vitals: Temp Pulse Resp BP Pulse Ox 98.3 F 83 16 152/81 92 06/29/20 12:43 06/29/20 14:56 06/29/20 14:56 06/29/20 13:31 06/29/20 12:50 General appearance: Present: no acute distress, well-nourished - EENT Eyes: Present: PERRL, EOM intact - Neck Neck: Present: supple, normal ROM - Respiratory Respiratory effort: normal Respiratory: bilateral: diminished, negative: rales, rhonchi, wheezing - Cardiovascular Rhythm: regular Heart Sounds: Present: S1 & S2 - Extremities Extremities: no ischemia, No edema - Abdominal General gastrointestinal: Present: soft, non-tender, non-distended, normal bowel sounds - Integumentary Integumentary: Present: clear, warm - Musculoskeletal Musculoskeletal: strength equal bilaterally, generalized weakness - Psychiatric Psychiatric: appropriate mood/affect, cooperative - Neurologic Neurologic: CNII-XII intact, moves all extremities Plan Activity: advance as tolerated Diet: other (Cardiac diet) Additional Instructions: Advised to see private local intermodal truck driver in 1-2 weeks as needed. If you have worsening symptoms contact MD or go to emergency room Follow up with: PRIMARY ARTUR, [Primary Care Provider] - 3-5 Days LORELEI ZAMARRIPA MD [Staff Physician] - 14 Days Prescriptions: hydrALAZINE [Apresoline TAB] 25 mg PO Q8HR #90 tablet Prednisone [predniSONE 10 mg (6-Day Pack, 21 Tabs)] 10 mg PO .TAPER #1 tab.ds.pk Albuterol Mdi (or & Nicu Only) [ProAir HFA Inhaler] 1 - 2 puff IH Q4H #1 lisinopriL [Zestril TAB] 10 mg PO QDAY #30 tablet Azithromycin [Zithromax Z-JUAN] 0 mg PO DAILY #1 tab
[2020-06-29] MEDS ORDERED: ENOXAPARIN 40 MG/0.4 ML INJ SUB-Q SCH (22:00)
== END 2020-06-29 17:09 | disposition home or self-care (01) ==
LOC: ED 13:21 → 3A 23:41
PROVIDERS: ADMIT Internal Medicine Geriatric Medicine; ATTEND Internal Medicine
DX: J44.1 Chronic obstructive pulmonary disease with (acute) exacerbation (principal); I10 Essential (primary) hypertension; Z87.891 Personal history of nicotine dependence
CPT/HCPCS: 36415; 71046; 80048; 80053; 84484; 85025; 85610; 93005; 94640; 96365; 96366; 96367; 96375; 96376; 99284; G0378; J1956; J2920; J2930; J3475; J7512; 85007